=== PATIENT | female | born 1965 ===

== ENCOUNTER 2021-08-08 14:53 | Outpatient (REF) | payer OTHER, SELFPAY ==
[2021-08-08 16:58] LABS: COMMENT (LAB VIEW ONLY) 125.37 mg/dL; Microalb ug/mg Crea 16.5 ug/mg Cr
== END 2021-08-08 14:54 | disposition home or self-care (01) ==
LOC: NCHCN 14:53
PROVIDERS: Visit Provider Nurse Practitioner Family
DX: R80.9 Proteinuria, unspecified (principal)
CPT/HCPCS: 82043; 82570

== ENCOUNTER 2021-09-08 20:40 | Outpatient (REF) | payer OTHER, SELFPAY ==
[2021-09-08 15:09] LABS: ALT 50 U/L (14-59); AST 23 U/L (15-37); Albumin 3.5 g/dL (3.4-5.0); Alkaline Phosphatase 77 U/L (46-116); Anion Gap 10.3 mmol/L (3-11); BUN 13 mg/dL (7-18); Bilirubin, Total 0.2 mg/dL (0.2-1.0); CO2 25.7 mmol/L (21.0-32.0); CREATININE 0.8 mg/dL (0.55-1.02); Calcium 8.6 mg/dL (8.5-10.1); Calculated LDL 172 mg/dL (<100); Chloride 106 mmol/L (98-107); Cholesterol 259 mg/dL (<200); Glucose 84 mg/dL (74-106); HDL Cholesterol 59 mg/dL (40-60); Potassium 4.6 mmol/L (3.5-5.1); Sodium 142 mmol/L (136-145); Total Protein 6.8 g/dL (6.4-8.2); Triglyceride 143 mg/dL (<150)
[2021-09-09 09:14] LABS: HIV-1/2 Ag & Ab Screen Negative (Negative)
[2021-09-11 10:34] LABS: HBs Antibody, Quant <3.1 mIU/mL (See Note); Hepatitis B Surface Ab Negative (See Note)
[2021-09-11 10:48] LABS: Hepatitis B Surface Ag Negative (Negative)
[2021-09-11 11:30] LABS: Hepatitis C Ab w Rflx HCV PCR Negative (Negative)
[2021-09-11 11:38] LABS: Hep B Core Antibody Negative (Negative)
== END 2021-09-08 20:41 | disposition home or self-care (01) ==
LOC: NCHCN 20:40
PROVIDERS: PCP Nurse Practitioner Family; Visit Provider Nurse Practitioner Family
DX: E11.9 Type 2 diabetes mellitus without complications (principal); E78.5 Hyperlipidemia, unspecified; R74.01 Elevation of levels of liver transaminase levels; K76.0 Fatty (change of) liver, not elsewhere classified; E66.9 Obesity, unspecified; Z11.4 Encounter for screening for human immunodeficiency virus [HIV]; Z11.59 Encounter for screening for other viral diseases
CPT/HCPCS: 80053; 80061; 86704; 86706; 86803; 87340; 87389

== ENCOUNTER 2021-11-09 19:36 | Outpatient (REF) | payer OTHER, SELFPAY ==
[2021-11-09 16:12] LABS: COMMENT (LAB VIEW ONLY) 195.78 mg/dL; Microalb ug/mg Crea 3.9 ug/mg Cr
== END 2021-11-09 19:37 | disposition home or self-care (01) ==
LOC: NCHCN 19:36
PROVIDERS: PCP Nurse Practitioner Family; Visit Provider Nurse Practitioner Family
DX: E11.9 Type 2 diabetes mellitus without complications (principal)
CPT/HCPCS: 82043; 82570